=== PATIENT | male | born 1995 | race Caucasian/White ===

== ENCOUNTER 2018-09-27 07:03 | Emergency (ER) | payer OTHER, SELFPAY ==
[2018-09-27] MEDS ORDERED: HYDROCODONE/APAP 7.5/325 MG TAB ONE (07:31)
--- NOTE | 2018-09-27 07:53 | ER ---
Nurse's Notes [facility] Name: Levar Bullock Age: 23 yrs Sex: Male : 1995 Arrival Date: 09/27/2018 Time: 07:10 Bed 20 Private MD: None, None Diagnosis: Pain in left knee Presentation: 09/27 07:18 Presenting complaint: Patient states: L knee pain since last night after "rough ss housing" and somebody falling onto affected leg. Transition of care: patient was not received from another setting of care. Onset of symptoms was September 26, 2018. Risk Assessment: Do you want to hurt yourself or someone else? Patient reports no desire to harm self or others. Initial Sepsis Screen: Does the patient meet any 2 criteria? No. Patient's initial sepsis screen is negative. Does the patient have a suspected source of infection? No. Patient's initial sepsis screen is negative. Care prior to arrival: None. 07:18 Method Of Arrival: Wheelchair ss 07:18 Acuity: TERENCE 4 ss Historical: - Allergies: 07:19 No Known Allergies; ss - Home Meds: 07:19 None [Active]; ss - PMHx: 07:19 None; ss - PSHx: 07:19 None; ss - Immunization history:: Adult Immunizations. - Social history:: Smoking status: . - Ebola Screening: : Patient denies travel to an Ebola-affected area in the 21 days before illness onset. Screenin:12 Abuse screen: Denies threats or abuse. Nutritional screening: No deficits noted. tw2 Tuberculosis screening: No symptoms or risk factors identified. Fall Risk None identified. Assessment: 07:12 General: Appears in no apparent distress. uncomfortable, well developed, Behavior is sv calm, cooperative, appropriate for age. Pain: Complains of pain in medial aspect of left knee Pain does not radiate. Pain currently is 7 out of 10 on a pain scale. Pain began 1 day ago. Is intermittent, episodic, Aggravated by increased activity, weight bearing. Neuro: Level of Consciousness is awake, alert, obeys commands, Oriented to person, place, time, situation, Moves all extremities. Full function Gait is steady. Respiratory: Trachea Respiratory effort is even, unlabored, Respiratory pattern is regular, symmetrical. Derm: Skin is pink, warm \\T\\ dry. Musculoskeletal: Range of motion: intact in all extremities, Reports tenderness to the left knee. 07:59 Reassessment: Patient appears in no apparent distress at this time. Patient and/or sv family updated on plan of care and expected duration. Pain level reassessed. Patient is alert, oriented x 3, equal unlabored respirations, skin warm/dry/pink. Vital Signs: 07:19 BP 127 / 77; Pulse 93; Resp 15; Temp 98.5(TE); Pulse Ox 97% on R/A; Weight 95.25 kg; ss Height 6 ft. 0 in. (182.88 cm); Pain 7/10; 07:55 BP 114 / 68; Pulse 89; Resp 18; Pulse Ox 97% ; sv 07:57 Pain 6/10; sv 07:19 Body Mass Index 28.48 (95.25 kg, 182.88 cm) ss ED Course: 07:10 Patient arrived in ED. mr 07:10 None, None is Private Physician. mr 07:12 [facility] Hard[facility]C [facility]. kb 07:12 Javier Pham MD is Attending Physician. kb 07:12 Arm band placed on. tw2 07:13 Nelsy Reed, DARON is Primary Nurse. sv 07:17 Patient has correct armband on for positive identification. Placed in gown. Bed in low sv position. Call light in reach. Adult w/ patient. Door closed. Head of bed elevated. 07:18 Awaiting for x-ray. sv 07:19 Triage completed. ss 07:39 X-ray(s) taken. sv 07:45 X-ray completed. Portable x-ray completed in exam room. Patient tolerated procedure la2 well. 07:46 Knee Left 3 View XRAY In Process Unspecified. EDMS 08:00 No provider procedures requiring assistance completed. Patient did not have IV access sv during this emergency room visit. 08:00 Crutch training done. Knee immobilizer applied on left knee. sv Administered Medications: 07:22 Drug: [place] (7.5 mg-325 mg) 1 tabs Route: PO; sv 07:57 Follow up: Pain 6/10 Adult; Response: No adverse reaction; Pain is decreased sv Outcome: 07:52 Discharge ordered by . kb 08:00 Discharged to home via wheelchair, with crutches, with family. sv 08:00 Condition: stable 08:00 Discharge instructions given to patient, family, Instructed on discharge instructions, follow up and referral plans. medication usage, crutch walking, knee immobilizer application Demonstrated understanding of instructions, follow-up care, medications, crutch walking, knee immobilizer application Prescriptions given X 1. 08:05 Patient left the ED. sv Signatures: Dispatcher [employer] EDMS Petra Hardwick, RASHIDA-C AVIAN KEEPER-Nelsy Pastor RN RN sv RiveraDiane Shelby, RN RN Yesenia Levine RN RN tw2 April Arenas Corrections: (The following items were deleted from the chart) 07:59 07:12 Musculoskeletal: Range of motion: intact in all extremities, sv sv
--- NOTE | 2018-09-27 07:53 | EDPHYS ---
Physician Documentation [facility] Name: Levar Bullock Age: 23 yrs Sex: Male : 1995 Arrival Date: 09/27/2018 Time: 07:10 Bed 20 Private MD: None, None ED Physician Javier Pham HPI: 09/27 07:26 This 23 yrs old Male presents to ER via Wheelchair with complaints of Knee kb Pain. 07:26 The patient presents with pain, that is acute, tenderness. The complaints affect the kb left knee. Context: resulted from someone fell onto his knee, heard pop, the patient can partially bear weight, the patient is able to ambulate, with moderate difficulty. Onset: The symptoms/episode began/occurred last night. Modifying factors: The symptoms are alleviated by nothing. the symptoms are aggravated by movement, weight bearing. Associated signs and symptoms: The patient has no apparent associated signs or symptoms. Treatment prior to arrival includes: no previous treatment. Severity of symptoms: At their worst the symptoms were moderate, in the emergency department the symptoms are unchanged. The patient has not experienced similar symptoms in the past. The patient has not recently seen a physician. Historical: - Allergies: 07:19 No Known Allergies; ss - Home Meds: 07:19 None [Active]; ss - PMHx: 07:19 None; ss - PSHx: 07:19 None; ss - Immunization history:: Adult Immunizations. - Social history:: Smoking status: . - Ebola Screening: : Patient denies travel to an Ebola-affected area in the 21 days before illness onset. ROS: 07:24 Constitutional: Negative for fever, chills, and weight loss, Cardiovascular: Negative kb for chest pain, palpitations, and edema, Respiratory: Negative for shortness of breath, cough, wheezing, and pleuritic chest pain, Abdomen/GI: Negative for abdominal pain, nausea, vomiting, diarrhea, and constipation, Skin: Negative for injury, rash, and discoloration, Neuro: Negative for headache, weakness, numbness, tingling, and seizure. 07:24 MS/extremity: Positive for injury or acute deformity, pain, tenderness, of the left knee, Negative for puncture, rash, tingling, warmth. Exam: 07:24 Constitutional: This is a well developed, well nourished patient who is awake, alert, kb and in no acute distress. Head/Face: Normocephalic, atraumatic. Neck: Trachea midline, no thyromegaly or masses palpated, and no cervical lymphadenopathy. Supple, full range of motion without nuchal rigidity, or vertebral point tenderness. No Meningismus. Chest/axilla: Normal chest wall appearance and motion. Nontender with no deformity. No lesions are appreciated. Cardiovascular: Regular rate and rhythm with a normal S1 and S2. No gallops, murmurs, or rubs. Normal PMI, no JVD. No pulse deficits. Respiratory: Lungs have equal breath sounds bilaterally, clear to auscultation and percussion. No rales, rhonchi or wheezes noted. No increased work of breathing, no retractions or nasal flaring. Abdomen/GI: Soft, non-tender, with normal bowel sounds. No distension or tympany. No guarding or rebound. No evidence of tenderness throughout. Skin: Warm, dry with normal turgor. Normal color with no rashes, no lesions, and no evidence of cellulitis. Neuro: Awake and alert, GCS 15, oriented to person, place, time, and situation. Cranial nerves II-XII grossly intact. Motor strength 5/5 in all extremities. Sensory grossly intact. Cerebellar exam normal. Normal gait. 07:24 Musculoskeletal/extremity: Extremities: grossly normal except: noted in the left knee: pain, tenderness, ROM: limited active range of motion due to pain, Circulation is intact in all extremities. Sensation intact. Weight bearing: able to fully bear weight, limps on left leg. Vital Signs: 07:19 BP 127 / 77; Pulse 93; Resp 15; Temp 98.5(TE); Pulse Ox 97% on R/A; Weight 95.25 kg; ss Height 6 ft. 0 in. (182.88 cm); Pain 7/10; 07:55 BP 114 / 68; Pulse 89; Resp 18; Pulse Ox 97% ; sv 07:57 Pain 6/10; sv 07:19 Body Mass Index 28.48 (95.25 kg, 182.88 cm) ss MDM: 07:12 Patient medically screened. kb 07:25 Data reviewed: vital signs, nurses notes. Data interpreted: Pulse oximetry: on room air kb is 97 %. Interpretation: normal. 07:52 Counseling: I had a detailed discussion with the patient and/or guardian regarding: the kb historical points, exam findings, and any diagnostic results supporting the discharge/admit diagnosis, radiology results, the need for outpatient follow up, a orthopedic surgeon, to return to the emergency department if symptoms worsen or persist or if there are any questions or concerns that arise at home. 09/27 07:16 Order name: Knee Left 3 View XRAY kb 09/27 07:52 Order name: Knee Immobilizer; Complete Time: 07:57 kb 09/27 07:52 Order name: Crutches; Complete Time: 07:56 kb Administered Medications: 07:22 Drug: [place] (7.5 mg-325 mg) 1 tabs Route: PO; sv 07:57 Follow up: Pain 12/28 Adult; Response: No adverse reaction; Pain is decreased sv Disposition: 09/27/18 07:52 Discharged to Home. Impression: Pain in left knee. - Condition is Stable. - Discharge Instructions: Knee Pain, [id number]. - Prescriptions for Diclofenac Sodium 75 mg Oral Tablet, Delayed Release (E.C.) - take 1 tablet by ORAL route 2 times per day As needed; 30 tablet. - Medication Reconciliation Form, Thank You Letter, Antibiotic Education, Prescription Opioid Use form. - Follow up: Emergency Department; When: As needed; Reason: Worsening of condition. Follow up: Private Physician; When: 2 - 3 days; Reason: Recheck today's complaints, Continuance of care, Re-evaluation by your physician. Addendum: 09/28/2018 09:33 Co-signature as Attending Physician, Javier Pham MD I agree with the assessment and c yuan plan of care. Signatures: Dispatcher [employer] Petra Lancaster, THREAD SPINNER-C THREAD SPINNER-Nelsy Pastor RN RN sv Anderson, Corey, MD MD cha Smirch, Shelby, RN RN ss Wise, Tara, RN RN tw2 Corrections: (The following items were deleted from the chart) 09/27 08:05 07:52 09/27/2018 07:52 Discharged to Home. Impression: Pain in left knee. Condition is sv Stable. Forms are Medication Reconciliation Form, Thank You Letter, Antibiotic Education, Prescription Opioid Use. Follow up: Emergency Department; When: As needed; Reason: Worsening of condition. Follow up: Private Physician; When: 2 - 3 days; Reason: Recheck today's complaints, Continuance of care, Re-evaluation by your physician. kb
--- NOTE | 2018-09-27 11:23 | RAD REPORT ---
EXAM DESCRIPTION: RAD - Knee Left 3 View - 09/27/2018 7:46 am CLINICAL HISTORY: PAIN COMPARISON: No comparisons FINDINGS: No bone or joint abnormality is detected.
== END 2018-09-27 08:05 | disposition home or self-care (01) ==
LOC: ER 07:03
DX: M25.562 Pain in left knee (principal)
CPT/HCPCS: 99284